=== PATIENT | female | born 1940 | race Caucasian/White ===

== ENCOUNTER 2016-06-12 13:45 | Emergency (ER) | payer OTHER ==
[2016-06-12 13:54] VITALS: BMI 44.1
[2016-06-12] MEDS ORDERED: IBUPROFEN 600 MG TABLET (FP) PO ONE (14:15)
--- NOTE | 2016-06-12 14:26 | PDOC ---
History of Present Illness - General Chief Complaint: Shortness of Breath Stated Complaint: TROUBLE BREATHING Time Seen by Provider: 06/12/16 14:04 - History of Present Illness Initial Comments: 06/12/16 14:16 CHIEF COMPLAINT: shortness of breath, fever x 2 days, cough HISTORY OF PRESENT ILLNESS: 75 yo F with hx of VT (s/p stent 2 years ago, on plavix), HTN, and HLD presents to ED with shortness of breath, fever x 2days, and productive cough. Patient reports that last week she saw the doctor and "everything was fine, they took blood but i haven't gotten results yet." Patient did not receive the flu shot this year. Patient has only taken tea and honey and her regular medications, she has not taken any new medications for her symptoms or her fever. She denies any palpitations, chest pain, arm pain, abdominal pain, and states "I only have problems above my throat." Patient states her throat hurts and last week she was "only coughing up water but now it has turned to phlegm." No recent travel or sick contacts. PAST MEDICAL HISTORY: Denies past medical history FAMILY HISTORY: Denies SOCIAL HISTORY:Denies tobacco, alcohol, illicit drug use. SURGICAL HISTORY: Denies ALLERGIES: Timur inhibitors, ARBs REVIEW OF SYSTEMS General/Constitutional: Denies fever or chills. Denies weakness, weight change. HEENT: Denies change in vision. Denies ear pain or discharge. Denies sore throat. Cardiovascular: Denies chest pain or shortness of breath. Respiratory: Cough. Denies wheezing, or hemoptysis. Gastrointestinal: Denies nausea, vomiting, diarrhea or constipation. Denies rectal bleeding. Genitourinary: Denies dysuria, frequency, or change in urination. Musculoskeletal: Denies joint or muscle swelling or pain. Denies neck or back pain. Skin and breasts: Denies rash or easy bruising. Neurologic: Denies headache, vertigo, loss of consciousness, or loss of sensation. PHYSICAL EXAM General Appearance: Well-appearing, appropriately dressed. No apparent distress , no intoxication. HEENT: Flushed cheeks. EOMI, PERRLA, normal ENT inspection, normal voice, TMs normal, pharynx normal. No conjunctival pallor. No photophobia, scleral icterus. Neck: Supple. Trachea midline. No tenderness, rigidity, carotid bruit, stridor , lymphadenopathy, or thyromegaly. Respiratory/Chest: Shortness of breath on exertion. Lungs CTAB. No chest tenderness, respiratory distress, accessory muscle use. No crackles, rales, rhonchi, stridor, wheezing, dullness Cardiovascular: RRR. S1, S2. No JVD, murmur, bradycardia, tachycardia. Vascular Pulses: Dorsalis-Pedis (R): 2+, Dorsalis-Pedis (L): 2+ Gastrointestinal/Abdominal: Normal bowel sounds. Abdomen soft, non-distended. No tenderness or rebound tenderness. No organomegaly, pulsatile mass, guarding , hernia, hepatomegaly, splenomegaly. Lymphatic: No adenopathy, tenderness. Musculoskeletal/Extremities: Normal inspection. FROM of all extremities, normal capillary refill. Pelvis Stable. No CVA tenderness. No tenderness to extremities, pedal edema, swelling, erythema or deformity. Integumentary: Appropriate color, dry, warm. No cyanosis, erythema, jaundice or rash Neurologic: medical information specialist II-XII intact. Fully oriented, alert. Appropriate mood/affect. Motor strength 5/5. No appreciable EOM palsy, facial droop or sensory deficit. Past History - Past Medical History Allergies/Adverse Reactions: Allergies Allergy/AdvReac Type Severity Reaction Status Date / Time TIMUR Inhibitors Allergy Verified 06/12/16 13:54 ARB-Angiotensin Receptor Allergy Verified 06/12/16 13:54 Antagonist Home Medications: Ambulatory Orders Acetaminophen [Tylenol] 350 mg PO QSHIFT PRN 02/03/14 Aspirin [ASA -] 81 mg PO DAILY 02/03/14 Clopidogrel Bisulfate [Plavix -] 75 mg PO DAILY 02/03/14 Losartan Potassium 25 mg PO DAILY 02/03/14 Metoprolol Succinate [Toprol XL -] 25 mg PO DAILY 02/03/14 Oxycodone HCl/Acetaminophen [Percocet 5-325 mg Tablet -] 1 - 2 tab PO Q6H #14 tablet 02/03/14 Simvastatin [Zocor -] 20 mg PO HS 02/03/14 Spironolactone 25 mg PO DAILY 02/03/14 Warfarin Na [Coumadin] 5 mg PO DAILY 02/03/14 Cephalexin Monohydrate [Keflex -] 500 mg PO BID #20 capsule 06/12/16 Cardiac Disorders: Yes (ANTERIOR WALL STEMI 2012) HTN: Yes - Surgical History Cardiac Surgery: Yes (CARDIAC CATH) - Immunization History Immunization Up to Date: Yes - Psycho/Social/Smoking Cessation Hx Anxiety: No Suicidal Ideation: No Smoking History: Never smoked Have you smoked in the past 12 months: No Number of Cigarettes Smoked Daily: 0 Hx Alcohol Use: No Drug/Substance Use Hx: No Substance Use Type: None *Physical Exam - Vital Signs Last Vital Signs Temp Pulse Resp BP Pulse Ox 102 F H 79 18 140/68 96 06/12/16 13:50 06/12/16 13:50 06/12/16 13:50 06/12/16 13:50 06/12/16 13:50 ED Treatment Course - LABORATORY CBC & Chemistry Diagram: 06/12/16 14:55 06/12/16 14:55 - RADIOLOGY Radiology Studies Ordered: Category Date Time Status CHEST PA & LAT [RAD] Stat Radiology 06/12/16 14:15 Ordered Medical Decision Making - Medical Decision Making 06/12/16 14:30 75 yo F with hx of VT (s/p stent 2 years ago, on plavix), HTN, and HLD presents to ED with shortness of breath, fever x 2days, and productive cough. Differential includes pneumonia, flu, viral illness. VT, PE considered, but unlikely given clinical presentation. -CBC, CMP, PT/INR -CXR, EKG -650 mg Tylenol -Influenza rapid swab Chest x-ray results: Large heart, less congestive changes as compared to 2013. Read by Dr. Gutierrez, radiology. EKG unchanged from prior. Flu negative. -UA, UCx UA positive for UTI. Will send Keflex 500 mg bid x 10 days. Advised patient to take medication as prescribed and follow up with Dr. Leyva, PCP. Daughter states she is taking her mother to Dr. Leyva on Tuesday. Advised patient of signs and symptoms for return to ED. Patient verbalized understanding and agrees to plan. *DC/Admit/Observation/Transfer Diagnosis at time of Disposition: Urinary tract infection Qualifiers: Urinary tract infection type: site unspecified Hematuria presence: without hematuria Qualified Code(s): N39.0 - Urinary tract infection, site not specified Upper respiratory infection Qualifiers: URI type: unspecified viral URI Qualified Code(s): J06.9 - Acute upper respiratory infection, unspecified - Discharge Dispostion Admit: No - Prescriptions Prescriptions: Cephalexin Monohydrate [Keflex -] 500 mg PO BID #20 capsule - Referrals Referrals: Ranjeet Leyva MD [Primary Care Provider] - - Patient Instructions Printed Discharge Instructions: DI for Urinary Tract Infection (UTI), DI for Viral Upper Respiratory Infection -- Adult Additional Instructions: Please take medication as prescribed and follow up with Dr. Leyva on Tuesday as discussed. If you develop persistent fever, chest pain, shortness of breath, headache, weakness, coughing with blood, abdominal pain, or any new or worsening symptoms, please return to the ER. Por favor tome la medicacin segn lo prescrito y realice el seguimiento con el Dr. Leyva el leonarda se discuti. Si usted desarrolla fiebre persistente, dolor de pecho, dificultad para respirar, dolor de flakita, debilidad, tos con suzanne, dolor abdominal, o cualquier nuevo o empeoramiento de los sntomas, por favor regrese a la rodrigo de emergencias. Print Language: ROMANSH
--- NOTE | 2016-06-12 14:34 | PDOC ---
*Physical Exam - Vital Signs Last Vital Signs Temp Pulse Resp BP Pulse Ox 102 F H 79 18 140/68 96 06/12/16 13:50 06/12/16 13:50 06/12/16 13:50 06/12/16 13:50 06/12/16 13:50 ED Treatment Course - LABORATORY CBC & Chemistry Diagram: 06/12/16 14:55 06/12/16 14:55 Medical Decision Making - Medical Decision Making 06/15/16 11:02 The patient was seen and evaluated in conjunction with CATHY Horton under my direct supervision, ancillary studies were reviewed. I agree with the plan as outlined by CATHY Horton. *DC/Admit/Observation/Transfer Diagnosis at time of Disposition: Urinary tract infection, Upper respiratory infection - Discharge Dispostion Disposition: HOME - Prescriptions Prescriptions: Cephalexin Monohydrate [Keflex -] 500 mg PO BID #20 capsule - Referrals Referrals: Ranjeet Leyva MD [Primary Care Provider] - - Patient Instructions Printed Discharge Instructions: DI for Urinary Tract Infection (UTI), DI for Viral Upper Respiratory Infection -- Adult Additional Instructions: Please take medication as prescribed and follow up with Dr. Leyva on Tuesday as discussed. If you develop persistent fever, chest pain, shortness of breath, headache, weakness, coughing with blood, abdominal pain, or any new or worsening symptoms, please return to the ER. Por favor tome la medicacin segn lo prescrito y realice el seguimiento con el Dr. Leyva el leonarda se discuti. Si usted desarrolla fiebre persistente, dolor de pecho, dificultad para respirar, dolor de flakita, debilidad, tos con suzanne, dolor abdominal, o cualquier nuevo o empeoramiento de los sntomas, por favor regrese a la rodrigo de emergencias. Print Language: CZECH
[2016-06-12] MEDS ORDERED: ACETAMINOPHEN 325 MG TABLET (FP) PO ONE (14:47)
[2016-06-12] MEDS ORDERED: ACETAMINOPHEN 325 MG TABLET (FP) ONE (14:54)
[2016-06-12 15:02] LABS: BASOPHIL 2.2 % (0-2.0); EOSINOPHIL 0.2 % (0-4.5); MCH 26.6 pg (25.7-33.7); MCHC 31.7 g/dl (32.0-36.0); MEAN PLT VOLUME 10.6 fl (7.5-11.1); NEUTROPHILS 66.1 % (42.8-82.8); PLATELET COUNT 116 K/MM3 (134-434); RDW 13.6 % (11.6-15.6); WHITE BLOOD COUNT 5.1 K/mm3 (4.0-10.0)
[2016-06-12 15:49] LABS: ALBUMIN 3.9 g/dl (3.4-5.0); ALK PHOS 81 U/L (45-117); ANION GAP 5 (8-16); BILIRUBIN,TOTAL 0.5 mg/dL (0.2-1.0); CALCIUM 9.5 mg/dL (8.5-10.1); CO2 30 mmol/L (21-32); CREATININE 0.8 mg/dL (0.55-1.02); GLUCOSE,RANDOM 87 mg/dL (74-106); SGOT/AST 20 U/L (15-37); SGPT/ALT 19 U/L (12-78); TOT PROT 7.5 g/dl (6.4-8.2)
[2016-06-12 17:01] LABS: INR 1.67 (0.82-1.09); PROTHROMBIN TIME (PATIENT) 18.6 SEC (9.98-11.88)
[2016-06-12 17:26] LABS: URINE APPEARANCE CLEAR; URINE BILIRUBIN NEGATIVE (NEGATIVE); URINE COLOR LTYELLOW; URINE GLUCOSE (UA) NEGATIVE (NEGATIVE); URINE KETONE NEGATIVE (NEGATIVE); URINE NITRITE NEGATIVE (NEGATIVE); URINE PROTEIN NEGATIVE (NEGATIVE); URINE UROBILINOGEN NEGATIVE E.U./dl (0.2-1.0)
[2016-06-12 17:27] LABS: URINE BLOOD 2+ (NEGATIVE); URINE LEUK ESTERASE 3+ (NEGATIVE)
[2016-06-12 17:28] LABS: URINE MUCUS RARE; URINE RBC 4 /hpf (0-3); URINE WBC 26 /hpf (3-5)
[2016-06-12 18:28] VITALS: BP 136/75; PULSE 78; TEMP 98.9
--- NOTE | 2016-06-13 10:24 | EKG ---
Test Reason : Blood Pressure : / mmHG Vent. Rate : 077 BPM Atrial Rate : 077 BPM P-R Int : 122 ms QRS Dur : 086 ms QT Int : 376 ms P-R-T Axes : 044 -08 044 degrees QTc Int : 425 ms NORMAL SINUS RHYTHM WITH 1ST DEGREE A-V BLOCK LOW VOLTAGE QRS CANNOT RULE OUT INFERIOR INFARCT (CITED ON OR BEFORE 12-JUN-2016) CANNOT RULE OUT ANTEROSEPTAL INFARCT (CITED ON OR BEFORE 12-JUN-2016) ABNORMAL ECG WHEN COMPARED WITH ECG OF 02-FEB-2014 23:29, NONSPECIFIC T WAVE ABNORMALITY HAS REPLACED INVERTED T WAVES IN LATERAL LEADS Confirmed by ANIRUDH LEES MD ([id number]) on 06/13/2016 10:24:15 AM Referred By: Confirmed By:ANIRUDH LEES MD
== END 2016-06-12 18:28 | disposition home or self-care (01) ==
LOC: JER 13:45
DX: J06.9 Acute upper respiratory infection, unspecified (principal); B97.89 Other viral agents as the cause of diseases classified elsewhere; I25.2 Old myocardial infarction; I10 Essential (primary) hypertension; Z95.5 Presence of coronary angioplasty implant and graft; E78.00 Pure hypercholesterolemia, unspecified; Z79.01 Long term (current) use of anticoagulants
CPT/HCPCS: 36415; 71020-TC; 80053; 81003; 81015; 85025; 85610; 87086; 87804; 93005; 93010; 99284-25

== ENCOUNTER 2022-01-02 10:46 | Observation (INO) | payer OTHER ==
[2022-01-02 10:53] VITALS: BMI 39.8
[2022-01-02 12:02] LABS: BASO % 0.6 % (0-2.0); HEMATOCRIT 40.5 % (32.4-45.2); HEMOGLOBIN 13.1 GM/dL (10.7-15.3); LYMPH % 23.7 % (8-40); MCH 28.1 pg (25.7-33.7); MCHC 32.2 g/dl (32.0-36.0); MEAN CELL VOLUME 87.3 fl (80-96); MEAN PLT VOLUME 10.3 fl (7.5-11.1); MONO % 10.5 % (3.8-10.2); NEUT % 65.2 % (42.8-82.8); PLATELET COUNT 112 10^3/uL (134-434); RBC 4.64 M/mm3 (3.60-5.2); RDW 13.3 % (11.6-15.6); WHITE BLOOD COUNT 3.3 K/mm3 (4.0-10.0)
[2022-01-02 12:21] LABS: CHLORIDE 104 mmol/L (98-107); SODIUM 136 mmol/L (136-145)
[2022-01-02 12:23] LABS: CALCIUM 9.1 mg/dL (8.5-10.1)
[2022-01-02 12:24] LABS: ALBUMIN 3.4 g/dl (3.4-5.0); ANION GAP 6 MMOL/L (8-16); BLOOD UREA NITROGEN 17.4 mg/dL (7-18); CO2 27 mmol/L (21-32); GLUCOSE,RANDOM 101 mg/dL (74-106)
[2022-01-02 12:27] LABS: CREATININE 0.9 mg/dL (0.55-1.3); SGOT/AST 27 U/L (15-37); SGPT/ALT 23 U/L (13-61)
[2022-01-02 12:29] LABS: BILIRUBIN,TOTAL 0.4 mg/dL (0.2-1); TOT PROT 6.7 g/dl (6.4-8.2)
[2022-01-02 12:30] LABS: ALK PHOS 77 U/L (45-117)
[2022-01-02] MEDS ORDERED: SODIUM CHLORIDE 0.9% 500 ML INFUS.BAG IV ONE (13:36)
[2022-01-02 14:23] LABS: EPI CELLS 4 /uL (0-25.1); HYALINE CASTS 1 /uL (0-3.1); PH,URINE 5.5 (5.0-8.0); URINE APPEARANCE CLEAR; URINE BACTERIA >9,000 /uL (0-1359); URINE BILIRUBIN NEGATIVE (NEGATIVE); URINE COLOR YELLOW; URINE GLUCOSE (UA) NEGATIVE (NEGATIVE); URINE KETONE TRACE (NEGATIVE); URINE LEUK ESTERASE NEGATIVE (NEGATIVE); URINE NITRITE POSITIVE (NEGATIVE); URINE PROTEIN NEGATIVE (NEGATIVE); URINE RBC 6 /uL (0-23.9); URINE UROBILINOGEN 0.2 mg/dL (0.2-1.0); URINE WBC 3 /uL (0-25.8)
[2022-01-02] MEDS ORDERED: CEFTRIAXONE 1 GM in DEXTROSE 5%-WATER - 100 ML IVPB ONE (14:52)
[2022-01-02] MEDS ORDERED: CEFTRIAXONE 1 GM/50 ML BAG ONE (15:04)
[2022-01-02] MEDS ORDERED: MAG HYDROX/AL HYDROX/SIMETH 30 ML UNIT-DOSE CUP ONE (15:04)
[2022-01-02] MEDS ORDERED: ACETAMINOPHEN 325 MG TABLET (FP) PO PRN (16:15)
[2022-01-03] MEDS ORDERED: ASPIRIN 81 MG CHEWABLE TABLETS PO SCH (10:00)
[2022-01-03] MEDS: SPIRONOLACTONE 25 MG TABLET PO SCH (10:19)
[2022-01-03] MEDS: metoPROLOL SUCCINATE 25 MG TAB.SR.24H (FP) PO SCH (10:20)
[2022-01-03] MEDS: RIVAROXABAN 20 MG TABLET PO SCH (10:20)
[2022-01-03 10:21] LABS: EOS % 0.1 % (0-4.5); HEMATOCRIT 42.7 % (32.4-45.2); HEMOGLOBIN 13.8 GM/dL (10.7-15.3); LYMPH % 50.5 % (8-40); MCH 27.9 pg (25.7-33.7); MCHC 32.3 g/dl (32.0-36.0); MEAN CELL VOLUME 86.5 fl (80-96); MEAN PLT VOLUME 11.1 fl (7.5-11.1); MONO % 6.9 % (3.8-10.2); NEUT % 41.5 % (42.8-82.8); PLATELET COUNT 105 10^3/uL (134-434); RBC 4.93 M/mm3 (3.60-5.2); RDW 13.6 % (11.6-15.6)
[2022-01-03 10:47] LABS: ALBUMIN 3.5 g/dl (3.4-5.0); CREATININE 0.7 mg/dL (0.55-1.3)
[2022-01-03 10:49] LABS: TOT PROT 6.8 g/dl (6.4-8.2)
[2022-01-03 10:54] LABS: BILIRUBIN,TOTAL 0.4 mg/dL (0.2-1)
[2022-01-03] MEDS: CEFTRIAXONE 1 GM in DEXTROSE 5%-WATER - 50 ML IVPB SCH (13:26)
[2022-01-04] MEDS: RIVAROXABAN 20 MG TABLET PO SCH (09:40)
[2022-01-04] MEDS: metoPROLOL SUCCINATE 25 MG TAB.SR.24H (FP) PO SCH (09:40)
[2022-01-04] MEDS: SPIRONOLACTONE 25 MG TABLET PO SCH (09:40)
[2022-01-04] MEDS: CEFTRIAXONE 1 GM in DEXTROSE 5%-WATER - 50 ML IVPB SCH (09:43)
[2022-01-04 12:19] VITALS: RESP 18
[2022-01-04 14:08] VITALS: BP 109/61; PULSE 78; TEMP 98.9
== END 2022-01-04 16:02 | disposition home or self-care (01) ==
LOC: JER 11:17 → INTOOBSV 12:46 → JERBED 12:46 → J4S 23:23
PROVIDERS: ADMIT Internal Medicine; ATTEND Internal Medicine
PROC: 3E03329 Introduction of Other Anti-infective into Peripheral Vein, Percutaneous Approach (ICD-10-PCS; principal; 2022-01-02)
PROC: 3E0337Z Introduction of Electrolytic and Water Balance Substance into Peripheral Vein, Percutaneous Approach (ICD-10-PCS; 2022-01-02)
DX: U07.1 COVID-19 (principal); I48.91 Unspecified atrial fibrillation; I25.10 Atherosclerotic heart disease of native coronary artery without angina pectoris; R55 Syncope and collapse; I24.8 Other forms of acute ischemic heart disease; I11.9 Hypertensive heart disease without heart failure; E78.5 Hyperlipidemia, unspecified; I25.2 Old myocardial infarction; Z88.8 Allergy status to other drugs, medicaments and biological substances
CPT/HCPCS: 0241U-QW; 36415; 70450-TC; 71045-TC-FY; 76705-TC; 80053; 81003; 82962; 84443; 84484; 85025; 87086; 87186; 93005; 93010; 93880-TC; 96365; 96366; 99285-25; G0378